=== PATIENT | female | born 1940 | race Caucasian/White ===

== ENCOUNTER 2018-04-09 12:49 | Outpatient (CLI) | payer MEDICARE, BC | END 2018-04-09 12:50 | disposition home or self-care (01) | LOC: BICMAMMO 12:49 | PROVIDERS: ATTEND Family Medicine | DX: Z13.820 Encounter for screening for osteoporosis (principal) | CPT/HCPCS: 77080 ==

== ENCOUNTER 2022-09-09 16:38 | Inpatient (IN) | payer MEDICARE, BC ==
[2022-09-09 17:18] LABS: #Lymphocytes 1.7 thou/uL (1.20-3.40); #Monocytes 0.9 thou/uL (0.11-0.59); #Neutrophils 14.6 thou/uL (1.40-6.50); %Eosinophils 0.1 % (0.0-10.0); %Neutrophils 84.9 % (42.0-75.0); Hemoglobin 12.2 g/dL (12.0-16.0); Mean Corpuscular HGB CONC 32.5 g/dL (32.0-36.0); Mean Corpuscular Hemoglobin 29.9 pg (27.0-31.0); Mean Corpuscular Volume 92.1 fL (78.0-98.0); Mean Platelet Volume 8.7 fL (7.4-10.4); Platelet Count 354 thou/uL (130-400); Red Blood Cell (RBC) Count 4.08 mill/uL (4.20-5.40); White Blood Cell (WBC) Count 17.2 thou/uL (4.8-10.8)
[2022-09-09 17:40] LABS: ALT (SGPT) 16 U/L (8-55); AST (SGOT) 19 U/L (5-34); Albumin 4.2 g/dL (3.4-4.8); Alkaline Phosphatase 69 U/L (40-110); Anion Gap 17 mmol/L (10-20); BUN (Urea Nitrogen) 12 mg/dL (9.8-20.1); Bilirubin, Total 0.6 mg/dL (0.2-1.2); Calc. Creatinine Clearance 0 mL/min (70-130); Calcium 9.3 mg/dL (7.8-10.44); Carbon Dioxide 22 mmol/L (23-31); Chloride 103 mmol/L (98-107); Estimated GFR 58; Globulin 3.1 g/dL (2.4-3.5); Glucose 183 mg/dL (83-110); Lipase 11 U/L (8-78); Potassium 4.1 mmol/L (3.5-5.1); Protein, Total 7.3 g/dL (5.8-8.1); Sodium 138 mmol/L (136-145)
[2022-09-09 18:01] LABS: CKMB 2.4 ng/mL (0-6.6)
[2022-09-09 18:48] LABS: Bacteria/HPF 3+ HPF (None Seen); Bilirubin Negative (Negative); Blood, Urine 1+ (Negative); Clarity Turbid (Clear); Glucose, Urine (Dipstick) Normal (Negative); Ketone, Urine Trace mg/dL (Negative); Leukocyte 500 Leu/uL (Negative); Nitrite 2+ (Negative); Protein, Urine (Dipstick) 20 mg/dL (Neg-Trace); Specific Gravity, Urine 1.018 (1.002-1.036); Squamous Epithelial 0-3 HPF (0-3); Urobilinogen Normal mg/dL (Less than 2); WBC/HPF Greater than 50 HPF (0-3); pH, Urine 6.5 (5.0-9.0)
[2022-09-09] MEDS ORDERED: cefTRIAXone\\ROCEPHIN 2 GM VIAL ONE (19:29)
[2022-09-09 20:38] LABS: Troponin I 0.034 ng/mL (< 0.028)
[2022-09-09] MEDS ORDERED: Acetaminophen 650 MG Suppository PR PRN (20:52)
[2022-09-09] MEDS ORDERED: Acetaminophen 325 MG TAB PO PRN (20:52)
[2022-09-09] MEDS ORDERED: Ondansetron ODT 4 MG TAB PO PRN (20:52)
[2022-09-09] MEDS ORDERED: Ondansetron PF 4 MG/2 ML Vial IVP PRN (20:52)
[2022-09-09] MEDS ORDERED: Dextrose 50% Abboject 50 ML SYRINGE SLOW IVP PRN (21:02)
[2022-09-09] MEDS ORDERED: HumaLOG 300 UNITS/3 ML VIAL SC PRN (21:02)
[2022-09-09] MEDS ORDERED: Dextrose 5% in Water 1,000 ML IV PRN (21:02)
[2022-09-10] MEDS: hydrALAZINE 20 MG/ML VIAL SLOW IVP PRN ×2 (00:07→11:09)
[2022-09-10 00:19] LABS: Troponin I 0.044 ng/mL (< 0.028)
[2022-09-10] MEDS ORDERED: Polyvinyl Alcohol 1.4%/Povidone 0.6% Opth Drops EA EYE PRN (01:58)
[2022-09-10] MEDS ORDERED: cloNIDine 0.2 MG TAB PO SCH (02:00)
[2022-09-10] MEDS ORDERED: Insulin Glargine 30 UNITS/0.3 ML VIAL SC SCH (02:00)
[2022-09-10 05:10] LABS: #Eosinphils 0.1 thou/uL (0.0-0.7); #Lymphocytes 2.4 thou/uL (1.20-3.40); #Monocytes 0.9 thou/uL (0.11-0.59); %Basophils 0.3 % (0.0-1.0); %Eosinophils 0.4 % (0.0-10.0); %Lymphocytes 17.8 % (21.0-51.0); %Monocytes 6.9 % (0.0-10.0); %Neutrophils 74.5 % (42.0-75.0); Hemoglobin 11.5 g/dL (12.0-16.0); Mean Corpuscular HGB CONC 32.6 g/dL (32.0-36.0); Mean Platelet Volume 8.9 fL (7.4-10.4); Platelet Count 331 thou/uL (130-400); RBC Distribution Width 11.9 % (11.5-14.5); Red Blood Cell (RBC) Count 3.83 mill/uL (4.20-5.40); White Blood Cell (WBC) Count 13.4 thou/uL (4.8-10.8)
[2022-09-10 05:23] LABS: Anion Gap 12 mmol/L (10-20); BUN (Urea Nitrogen) 11 mg/dL (9.8-20.1); Calc. Creatinine Clearance 0 mL/min (70-130); Calcium 8.6 mg/dL (7.8-10.44); Carbon Dioxide 23 mmol/L (23-31); Chloride 103 mmol/L (98-107); Estimated GFR 69; Glucose 147 mg/dL (83-110); Potassium 3.8 mmol/L (3.5-5.1); Sodium 134 mmol/L (136-145)
[2022-09-10] MEDS ORDERED: Hydrochlorothiazide 25 MG TAB PO SCH (09:00)
[2022-09-10] MEDS ORDERED: FLU VACC QS2022-23(65YR UP)/PF 240 MCG/0.7 ML SYRINGE IM ONE (09:00)
[2022-09-10] MEDS: Aspirin 81 mg Enteric Coated Tablet PO SCH (09:34)
[2022-09-10] MEDS: Multivit, Therapeutic 1 TAB PO SCH (09:34)
[2022-09-10] MEDS: Cholecalciferol 1,000 UNITS (25 MCG) TAB PO SCH (09:35)
[2022-09-10] MEDS: Atorvastatin Calcium 10 MG TAB PO SCH (09:35)
[2022-09-10] MEDS: Losartan 25 MG TAB PO SCH (09:35)
[2022-09-10] MEDS: Enoxaparin Sodium 40 MG/0.4 ML SYRINGE SC SCH (09:36)
[2022-09-10] MEDS ORDERED: metFORMIN 850 MG TAB PO SCH (11:00)
[2022-09-10] MEDS ORDERED: Labetalol HCl 100 MG/20 ML VIAL SLOW IVP PRN (13:57)
[2022-09-10] MEDS: metFORMIN 850 MG TAB PO SCH (18:03)
[2022-09-10] MEDS: cefTRIAXone\\ROCEPHIN 1 GM in Sodium Chloride 0.9% 100 ML IVPB SCH (18:03)
[2022-09-10] MEDS: cloNIDine 0.2 MG TAB PO SCH (20:15)
[2022-09-11 04:46] LABS: #Eosinphils 0.1 thou/uL (0.0-0.7); #Lymphocytes 2.9 thou/uL (1.20-3.40); #Monocytes 1.4 thou/uL (0.11-0.59); #Neutrophils 10.8 thou/uL (1.40-6.50); %Basophils 0.3 % (0.0-1.0); %Eosinophils 0.4 % (0.0-10.0); %Lymphocytes 19.1 % (21.0-51.0); %Neutrophils 71.2 % (42.0-75.0); Hemoglobin 11.6 g/dL (12.0-16.0); Mean Corpuscular HGB CONC 33.7 g/dL (32.0-36.0); Mean Corpuscular Hemoglobin 31.2 pg (27.0-31.0); Mean Corpuscular Volume 92.6 fL (78.0-98.0); Mean Platelet Volume 8.9 fL (7.4-10.4); Platelet Count 342 thou/uL (130-400); RBC Distribution Width 12.2 % (11.5-14.5); Red Blood Cell (RBC) Count 3.72 mill/uL (4.20-5.40); White Blood Cell (WBC) Count 15.1 thou/uL (4.8-10.8)
[2022-09-11 05:23] LABS: ALT (SGPT) 14 U/L (8-55); AST (SGOT) 15 U/L (5-34); Albumin 3.5 g/dL (3.4-4.8); Alkaline Phosphatase 59 U/L (40-110); Anion Gap 14 mmol/L (10-20); BUN (Urea Nitrogen) 18 mg/dL (9.8-20.1); Bilirubin, Total 0.6 mg/dL (0.2-1.2); Calc. Creatinine Clearance 0 mL/min (70-130); Calcium 8.7 mg/dL (7.8-10.44); Carbon Dioxide 22 mmol/L (23-31); Chloride 101 mmol/L (98-107); Estimated GFR 40; Globulin 3.1 g/dL (2.4-3.5); Glucose 152 mg/dL (83-110); Magnesium 1.4 mg/dL (1.6-2.6); Protein, Total 6.6 g/dL (5.8-8.1); Sodium 133 mmol/L (136-145)
[2022-09-11] MEDS: cloNIDine 0.2 MG TAB PO SCH ×2 (08:31→20:41)
[2022-09-11] MEDS: Aspirin 81 mg Enteric Coated Tablet PO SCH (08:31)
[2022-09-11] MEDS: Cholecalciferol 1,000 UNITS (25 MCG) TAB PO SCH (08:31)
[2022-09-11] MEDS: Enoxaparin Sodium 40 MG/0.4 ML SYRINGE SC SCH (08:31)
[2022-09-11] MEDS: Insulin Glargine 30 UNITS/0.3 ML VIAL SC SCH (08:31)
[2022-09-11] MEDS: Atorvastatin Calcium 10 MG TAB PO SCH (08:31)
[2022-09-11] MEDS: metFORMIN 850 MG TAB PO SCH ×2 (08:31→17:39)
[2022-09-11] MEDS: Losartan 25 MG TAB PO SCH (08:32)
[2022-09-11] MEDS: Multivit, Therapeutic 1 TAB PO SCH (08:32)
[2022-09-11] MEDS: Amlodipine 10 MG TAB PO SCH (11:17)
[2022-09-11] MEDS: Sodium Chloride 0.9% 1,000 ML IV SCH ×2 (11:17→20:42)
[2022-09-11] MEDS ORDERED: Magnesium Sulfate In Water 4 GM in Premix Bag 1 BAG IVPB SCH (11:45)
[2022-09-11 12:16] VITALS: BMI 28.6
[2022-09-11] MEDS: HumaLOG 300 UNITS/3 ML VIAL SC PRN (17:37)
[2022-09-11] MEDS: cefTRIAXone\\ROCEPHIN 1 GM in Sodium Chloride 0.9% 100 ML IVPB SCH (18:56)
[2022-09-12 04:39] LABS: #Eosinphils 0.3 thou/uL (0.0-0.7); #Lymphocytes 2.4 thou/uL (1.20-3.40); #Monocytes 1.1 thou/uL (0.11-0.59); #Neutrophils 8.8 thou/uL (1.40-6.50); %Basophils 0.2 % (0.0-1.0); %Lymphocytes 18.8 % (21.0-51.0); %Monocytes 8.8 % (0.0-10.0); %Neutrophils 70.2 % (42.0-75.0); Hemoglobin 11.1 g/dL (12.0-16.0); Mean Corpuscular HGB CONC 32.8 g/dL (32.0-36.0); Mean Corpuscular Hemoglobin 30.4 pg (27.0-31.0); Mean Corpuscular Volume 92.7 fl (78.0-98.0); Mean Platelet Volume 9.6 fL (7.4-10.4); Platelet Count 276 thou/uL (130-400); RBC Distribution Width 12.1 % (11.5-14.5); Red Blood Cell (RBC) Count 3.64 mill/uL (4.20-5.40); White Blood Cell (WBC) Count 12.5 thou/uL (4.8-10.8)
[2022-09-12 05:13] LABS: Anion Gap 12 mmol/L (10-20); BUN (Urea Nitrogen) 17 mg/dL (9.8-20.1); Calc. Creatinine Clearance 53 mL/min (70-130); Calcium 8.7 mg/dL (7.8-10.44); Carbon Dioxide 22 mmol/L (23-31); Chloride 103 mmol/L (98-107); Estimated GFR 53; Glucose 162 mg/dL (83-110); Magnesium 2.2 mg/dL (1.6-2.6); Potassium 4.1 mmol/L (3.5-5.1); Sodium 133 mmol/L (136-145)
[2022-09-12] MEDS: Sodium Chloride 0.9% 1,000 ML IV SCH (06:27)
[2022-09-12] MEDS: Insulin Glargine 30 UNITS/0.3 ML VIAL SC SCH (09:00)
[2022-09-12] MEDS: Enoxaparin Sodium 40 MG/0.4 ML SYRINGE SC SCH (09:00)
[2022-09-12] MEDS: Atorvastatin Calcium 10 MG TAB PO SCH (09:01)
[2022-09-12] MEDS: Multivit, Therapeutic 1 TAB PO SCH (09:01)
[2022-09-12] MEDS: Cholecalciferol 1,000 UNITS (25 MCG) TAB PO SCH (09:01)
[2022-09-12] MEDS: Aspirin 81 mg Enteric Coated Tablet PO SCH (09:01)
[2022-09-12] MEDS: Amlodipine 10 MG TAB PO SCH (09:01)
[2022-09-12] MEDS: metFORMIN 850 MG TAB PO SCH ×2 (09:01→17:15)
[2022-09-12] MEDS: cloNIDine 0.2 MG TAB PO SCH ×2 (09:01→20:58)
[2022-09-12] MEDS: HumaLOG 300 UNITS/3 ML VIAL SC PRN (11:34)
[2022-09-12] MEDS: cefTRIAXone\\ROCEPHIN 1 GM in Sodium Chloride 0.9% 100 ML IVPB SCH (18:07)
[2022-09-13 05:04] LABS: #Eosinphils 0.3 thou/uL (0.0-0.7); #Monocytes 1.2 thou/uL (0.11-0.59); #Neutrophils 7.2 thou/uL (1.40-6.50); %Basophils 0.4 % (0.0-1.0); %Eosinophils 2.4 % (0.0-10.0); %Lymphocytes 25.7 % (21.0-51.0); %Monocytes 10.4 % (0.0-10.0); %Neutrophils 61.1 % (42.0-75.0); Hemoglobin 11.1 g/dL (12.0-16.0); Mean Corpuscular HGB CONC 32.8 g/dL (32.0-36.0); Mean Corpuscular Hemoglobin 30.5 pg (27.0-31.0); Mean Platelet Volume 9.3 fL (7.4-10.4); Platelet Count 298 thou/uL (130-400); RBC Distribution Width 12.1 % (11.5-14.5); Red Blood Cell (RBC) Count 3.65 mill/uL (4.20-5.40); White Blood Cell (WBC) Count 11.8 thou/uL (4.8-10.8)
[2022-09-13 05:13] LABS: Anion Gap 13 mmol/L (10-20); BUN (Urea Nitrogen) 15 mg/dL (9.8-20.1); Calc. Creatinine Clearance 59 mL/min (70-130); Calcium 8.9 mg/dL (7.8-10.44); Carbon Dioxide 22 mmol/L (23-31); Chloride 103 mmol/L (98-107); Estimated GFR 61; Glucose 128 mg/dL (83-110); Potassium 3.8 mmol/L (3.5-5.1); Sodium 134 mmol/L (136-145)
[2022-09-13] MEDS: Atorvastatin Calcium 10 MG TAB PO SCH (09:23)
[2022-09-13] MEDS: cloNIDine 0.2 MG TAB PO SCH ×2 (09:24→20:55)
[2022-09-13] MEDS: Amlodipine 10 MG TAB PO SCH (09:24)
[2022-09-13] MEDS: metFORMIN 850 MG TAB PO SCH ×2 (09:24→17:57)
[2022-09-13] MEDS: Aspirin 81 mg Enteric Coated Tablet PO SCH (09:24)
[2022-09-13] MEDS: Cholecalciferol 1,000 UNITS (25 MCG) TAB PO SCH (09:24)
[2022-09-13] MEDS: Multivit, Therapeutic 1 TAB PO SCH (09:25)
[2022-09-13] MEDS: Enoxaparin Sodium 40 MG/0.4 ML SYRINGE SC SCH (09:27)
[2022-09-13] MEDS: Insulin Glargine 30 UNITS/0.3 ML VIAL SC SCH (09:27)
[2022-09-13] MEDS: cefTRIAXone\\ROCEPHIN 1 GM in Sodium Chloride 0.9% 100 ML IVPB SCH (17:57)
[2022-09-14 04:56] LABS: Anion Gap 14 mmol/L (10-20); BUN (Urea Nitrogen) 15 mg/dL (9.8-20.1); Calc. Creatinine Clearance 64 mL/min (70-130); Calcium 8.8 mg/dL (7.8-10.44); Carbon Dioxide 23 mmol/L (23-31); Chloride 103 mmol/L (98-107); Estimated GFR 66; Glucose 102 mg/dL (83-110); Potassium 3.7 mmol/L (3.5-5.1); Sodium 136 mmol/L (136-145)
[2022-09-14 04:57] LABS: #Eosinphils 0.2 thou/uL (0.0-0.7); #Lymphocytes 2.8 thou/uL (1.20-3.40); #Monocytes 1.1 thou/uL (0.11-0.59); #Neutrophils 7.2 thou/uL (1.40-6.50); %Basophils 0.4 % (0.0-1.0); %Eosinophils 1.7 % (0.0-10.0); %Lymphocytes 24.8 % (21.0-51.0); %Monocytes 9.6 % (0.0-10.0); %Neutrophils 63.6 % (42.0-75.0); Mean Corpuscular HGB CONC 32.3 g/dL (32.0-36.0); Mean Corpuscular Hemoglobin 30.3 pg (27.0-31.0); Mean Corpuscular Volume 93.7 fl (78.0-98.0); Mean Platelet Volume 9.1 fL (7.4-10.4); Platelet Count 340 thou/uL (130-400); Red Blood Cell (RBC) Count 3.64 mill/uL (4.20-5.40); White Blood Cell (WBC) Count 11.3 thou/uL (4.8-10.8)
[2022-09-14] MEDS: Amlodipine 10 MG TAB PO SCH (09:33)
[2022-09-14] MEDS: metFORMIN 850 MG TAB PO SCH ×2 (09:33→17:41)
[2022-09-14] MEDS: Multivit, Therapeutic 1 TAB PO SCH (09:34)
[2022-09-14] MEDS: cloNIDine 0.2 MG TAB PO SCH ×2 (09:34→19:52)
[2022-09-14] MEDS: Insulin Glargine 30 UNITS/0.3 ML VIAL SC SCH (09:34)
[2022-09-14] MEDS: Aspirin 81 mg Enteric Coated Tablet PO SCH (09:34)
[2022-09-14] MEDS: Cholecalciferol 1,000 UNITS (25 MCG) TAB PO SCH (09:34)
[2022-09-14] MEDS: Enoxaparin Sodium 40 MG/0.4 ML SYRINGE SC SCH (09:34)
[2022-09-14] MEDS: Atorvastatin Calcium 10 MG TAB PO SCH (09:34)
[2022-09-14] MEDS ORDERED: Losartan 25 MG TAB PO SCH (10:15)
[2022-09-14] MEDS: HumaLOG 300 UNITS/3 ML VIAL SC PRN (11:43)
[2022-09-14] MEDS ORDERED: cefTRIAXone\\ROCEPHIN 1 GM in Sodium Chloride 0.9% 100 ML IVPB SCH (18:00)
[2022-09-14 19:55] VITALS: BP 122/58; TEMP 98.4
[2022-09-15] MEDS ORDERED: Losartan 25 MG TAB PO SCH (09:00)
== END 2022-09-14 20:00 | DRG 872 ==
LOC: ERS 16:38 → 2NO 19:58 → OBSVTOIN 09-11 09:36
PROVIDERS: ADMIT Internal Medicine; ATTEND Internal Medicine
DX: A41.51 Sepsis due to Escherichia coli [E. coli] (principal); N39.0 Urinary tract infection, site not specified; N17.9 Acute kidney failure, unspecified; I10 Essential (primary) hypertension; E11.9 Type 2 diabetes mellitus without complications; Z20.822 Contact with and (suspected) exposure to COVID-19; R77.8 Other specified abnormalities of plasma proteins; Z79.4 Long term (current) use of insulin; Z79.82 Long term (current) use of aspirin; Z79.899 Other long term (current) drug therapy
CPT/HCPCS: 36415; 36416; 51701; 70450; 71045; 80048; 80053; 81003; 81015; 82550; 82553; 83605; 83690; 83735; 84484; 85025; 87040; 87077; 87086; 87186; 93005; 93306; 96365; 96372; 96375; 96376; G0378; J0360; J0696; J1650; J1815; J2405; J3475; J3490; J7050; U0003; U0005

== ENCOUNTER 2024-11-03 19:23 | Emergency (ER) | payer MEDICARE, BC ==
[2024-11-03 20:31] LABS: #Basophils 0.03 10x3/uL (0.0-0.2); #Eosinophils Less than 0.03 10x3/uL (0.0-0.7); %Basophils 0.2 % (0.0-1.0); %Eosinophils 0.1 % (0.0-10.0); %Lymphocytes 10.4 % (21.0-51.0); %Monocytes 6.3 % (0.0-10.0); %Neutrophils 82.6 % (42.0-75.0); Hematocrit 36.6 % (36.0-47.0); Hemoglobin 12.3 g/dL (12.0-16.0); Mean Corpuscular HGB CONC 33.6 g/dL (32.0-36.0); Mean Corpuscular Hemoglobin 30.1 pg (27.0-31.0); Mean Corpuscular Volume 89.7 fL (78.0-98.0); Mean Platelet Volume 10.8 fL (7.4-10.4); Platelet Count 351 10x3/uL (130-400); RBC Distribution Width 13.6 % (11.5-14.5); Red Blood Cell (RBC) Count 4.08 mill/uL (4.20-5.40)
[2024-11-03 20:45] LABS: Anion Gap 19 mmol/L (10-20); BUN (Urea Nitrogen) 20 mg/dL (9.8-20.1); Calc. Creatinine Clearance 0 mL/min (70-130); Calcium 9.4 mg/dL (7.8-10.44); Carbon Dioxide 19 mmol/L (23-31); Chloride 103 mmol/L (98-107); Estimated GFR 46; Glucose 263 mg/dL (83-110); Potassium 4.2 mmol/L (3.5-5.1); Sodium 137 mmol/L (136-145)
[2024-11-04 00:20] LABS: Bacteria/HPF 4+ HPF (None Seen); Bilirubin Negative (Negative); Blood, Urine 3+ (Negative); CAUTI Indications for Culture Pelvic or flank pain; Clarity Extra Turbid (Clear); Glucose, Urine (Dipstick) 70 mg/dL (Negative); Ketone, Urine Trace mg/dL (Negative); Leukocyte 500 Leu/uL (Negative); Nitrite Negative (Negative); Protein, Urine (Dipstick) 200 mg/dL (Neg-Trace); Specific Gravity, Urine 1.024 (1.002-1.036); Urobilinogen Normal mg/dL (Less than 2); WBC/HPF Greater than 50 HPF (0-3)
[2024-11-04 00:21] LABS: Urine Culture Reflex Yes Yes
[2024-11-04] MEDS ORDERED: cefTRIAXone (ROCEPHIN) 1 GM VIAL ONE (00:45)
[2024-11-04] MEDS ORDERED: Lidocaine 1% MPF 2 ML VIAL ONE (00:45)
== END 2024-11-04 01:15 | disposition home or self-care (01) ==
LOC: ERS 19:23
DX: S42.201A Unspecified fracture of upper end of right humerus, initial encounter for closed fracture (principal); N39.0 Urinary tract infection, site not specified; E11.9 Type 2 diabetes mellitus without complications; I10 Essential (primary) hypertension; W01.0XXA Fall on same level from slipping, tripping and stumbling without subsequent striking against object, initial encounter
CPT/HCPCS: 36415; 80048; 81001; 85025; 87077; 87086; 93005; 96372; 99283; J0696

== ENCOUNTER 2024-12-26 19:34 | Inpatient (IN) | payer MEDICARE, BC ==
[2024-12-26 21:47] LABS: #Basophils 0.05 10x3/uL (0.0-0.2); %Basophils 0.5 % (0.0-1.0); %Eosinophils 0.8 % (0.0-10.0); %Lymphocytes 26.9 % (21.0-51.0); %Neutrophils 64.6 % (42.0-75.0); Hematocrit 38.6 % (36.0-47.0); Hemoglobin 12.5 g/dL (12.0-16.0); Mean Corpuscular HGB CONC 32.4 g/dL (32.0-36.0); Mean Corpuscular Hemoglobin 29.4 pg (27.0-31.0); Mean Corpuscular Volume 90.8 fL (78.0-98.0); Mean Platelet Volume 10.9 fL (7.4-10.4); Platelet Count 376 10x3/uL (130-400); RBC Distribution Width 13.5 % (11.5-14.5); Red Blood Cell (RBC) Count 4.25 mill/uL (4.20-5.40)
[2024-12-26 22:02] LABS: Anion Gap 17 mmol/L (10-20); BUN (Urea Nitrogen) 13 mg/dL (9.8-20.1); Calc. Creatinine Clearance 0 mL/min (70-130); Carbon Dioxide 23 mmol/L (23-31); Chloride 105 mmol/L (98-107); Potassium 4.2 mmol/L (3.5-5.1); Sodium 141 mmol/L (136-145)
[2024-12-26 22:03] LABS: ALT (SGPT) 18 U/L (Less than 34); AST (SGOT) 39 U/L (11-34); Alkaline Phosphatase 70 U/L (40-110); Bilirubin, Total 0.4 mg/dL (0.3-1.2); Calcium 9.6 mg/dL (7.8-10.44); Estimated GFR 63; Globulin 4.2 g/dL (2.4-3.5); Glucose 138 mg/dL (83-110); Protein, Total 8.2 g/dL (5.8-8.1)
[2024-12-26 23:07] LABS: Bilirubin Negative (Negative); Blood, Urine 3+ (Negative); CAUTI Indications for Culture Alt mental st,lethar; Clarity Extra Turbid (Clear); Glucose, Urine (Dipstick) Normal (Negative); Ketone, Urine Negative (Negative); Leukocyte 500 Leu/uL (Negative); Nitrite Negative (Negative); Protein, Urine (Dipstick) 50 mg/dL (Neg-Trace); RBC/HPF Greater than 50 HPF (0-3); Specific Gravity, Urine 1.019 (1.002-1.036); Urobilinogen Normal mg/dL (Less than 2); WBC/HPF Greater than 50 HPF (0-3)
[2024-12-26 23:08] LABS: Bacteria/HPF 3+ HPF (None Seen)
[2024-12-26 23:10] LABS: Urine Culture Reflex Yes Yes
[2024-12-27] MEDS ORDERED: Sodium Chloride 0.9% 100 ML ONE (00:02)
[2024-12-27] MEDS ORDERED: cefTRIAXone (ROCEPHIN) 1 GM VIAL ONE (00:02)
[2024-12-27] MEDS ORDERED: Dextrose 5% in Water 1,000 ML IV PRN (00:10)
[2024-12-27] MEDS ORDERED: Glucagon 1 MG/ML KIT IM PRN (00:10)
[2024-12-27] MEDS ORDERED: Ondansetron PF 4 MG/2 ML Vial IVP PRN (00:10)
[2024-12-27] MEDS ORDERED: Dextrose 50% Abboject 50 ML SYRINGE SLOW IVP PRN (00:10)
[2024-12-27] MEDS ORDERED: Acetaminophen 325 MG TAB PO PRN (00:10)
[2024-12-27] MEDS ORDERED: cloNIDine 0.1 MG TAB ONE (00:38)
[2024-12-27] MEDS ORDERED: Atorvastatin Calcium 10 MG TAB ONE (00:39)
[2024-12-27 01:45] VITALS: BMI 23.9
[2024-12-27] MEDS ORDERED: Polyvinyl Alcohol 1.4%/Povidone 0.6% Opth Drops EA EYE PRN (02:29)
[2024-12-27] MEDS: Losartan 25 MG TAB PO SCH ×2 (02:48→20:07)
[2024-12-27] MEDS ORDERED: Insulin Lispro 100 UNIT/ML 10 ML VIAL SC PRN (05:56)
[2024-12-27 06:10] LABS: #Basophils 0.06 10x3/uL (0.0-0.2); %Basophils 0.6 % (0.0-1.0); %Eosinophils 1.2 % (0.0-10.0); %Lymphocytes 28.2 % (21.0-51.0); %Monocytes 8.6 % (0.0-10.0); %Neutrophils 61.2 % (42.0-75.0); Hematocrit 37.2 % (36.0-47.0); Hemoglobin 11.6 g/dL (12.0-16.0); Mean Corpuscular HGB CONC 31.2 g/dL (32.0-36.0); Mean Corpuscular Hemoglobin 29.8 pg (27.0-31.0); Mean Corpuscular Volume 95.6 fL (78.0-98.0); Mean Platelet Volume 11.6 fL (7.4-10.4); Platelet Count 278 10x3/uL (130-400); RBC Distribution Width 13.7 % (11.5-14.5); Red Blood Cell (RBC) Count 3.89 mill/uL (4.20-5.40)
[2024-12-27] MEDS: Insulin Lispro 100 UNIT/ML 10 ML VIAL SC PRN (06:11)
[2024-12-27] MEDS: Nystatin Powder 15 GM BOT TOP PRN (06:12)
[2024-12-27 06:30] LABS: Anion Gap 15 mmol/L (10-20); BUN (Urea Nitrogen) 14 mg/dL (9.8-20.1); Calc. Creatinine Clearance 53 mL/min (70-130); Calcium 8.9 mg/dL (7.8-10.44); Carbon Dioxide 21 mmol/L (23-31); Chloride 106 mmol/L (98-107); Estimated GFR 67; Glucose 200 mg/dL (83-110); Potassium 3.8 mmol/L (3.5-5.1); Sodium 138 mmol/L (136-145)
[2024-12-27] MEDS: Aspirin 81 mg Enteric Coated Tablet PO SCH (09:24)
[2024-12-27] MEDS: cloNIDine 0.2 MG TAB PO SCH (09:24)
[2024-12-27] MEDS: Heparin 5,000 UNITS/ML VIAL SC SCH (09:24)
[2024-12-27] MEDS: metFORMIN 850 MG TAB PO SCH (09:24)
[2024-12-27] MEDS: Insulin Glargine 30 UNITS/0.3 ML VIAL SC SCH (20:07)
[2024-12-27] MEDS: Atorvastatin Calcium 10 MG TAB PO SCH (20:07)
[2024-12-28] MEDS: cefTRIAXone\\ROCEPHIN 1 GM in Sodium Chloride 0.9% 100 ML IVPB SCH (00:02)
[2024-12-28] MEDS: Sodium Chloride 0.9% 1,000 ML IV SCH (13:35)
[2024-12-28] MEDS: Cipro 250 MG TAB PO SCH (20:28)
[2024-12-29 19:10] VITALS: BP 178/93; TEMP 98.2
== END 2024-12-29 22:15 | disposition home or self-care (01) | DRG 689 ==
LOC: ERS 19:34 → MSONC 12-27 00:13 → OBSVTOIN 12-27 11:55
PROVIDERS: ADMIT Student in an Organized Health Care Education/Training Program; ATTEND Hospitalist
DX: N39.0 Urinary tract infection, site not specified (principal); G93.41 Metabolic encephalopathy; R44.3 Hallucinations, unspecified; I10 Essential (primary) hypertension; E11.9 Type 2 diabetes mellitus without complications; E78.5 Hyperlipidemia, unspecified; Z90.89 Acquired absence of other organs; Z98.890 Other specified postprocedural states
CPT/HCPCS: 36415; 36416; 51701; 80048; 80053; 81001; 85025; 87077; 87086; 87186; 96372; 96374; G0378; J0696; J1644; J1815; J7030